=== PATIENT | female | born 1960 | race Caucasian/White ===

== ENCOUNTER 2019-01-17 07:21 | Emergency (ER) | payer OTHER, MEDICAID ==
[2019-01-17] MEDS: KETOROLAC 60 MG INJ IM (07:56)
[2019-01-17] MEDS: DEXAMETHASONE 10 MG/ML 1 ML INJ IM (07:57)
[2019-01-17 08:03] LABS: URINE BLOOD (Dip) POC Trace-intact (NEGATIVE); URINE GLUCOSE (Dip) POC Negative (NEGATIVE); URINE KETONES (Dip) POC Negative (NEGATIVE); URINE LEUKOCYTE EST (Dip) POC 1+ (NEGATIVE); URINE NITRITE (Dip) POC Negative (NEGATIVE); URINE TOTAL PROTEIN POC 2+ (NEGATIVE)
== END 2019-01-17 08:28 | disposition home or self-care (01) ==
LOC: FTE 07:21
DX: M54.5 Low back pain (principal)
CPT/HCPCS: 81003; 96372; 99284-25